=== PATIENT | female | born 1945 | race Hispanic/Latino ===

== ENCOUNTER 2018-03-22 10:55 | Observation (INO) | payer OTHER ==
[2018-03-19 15:40] VITALS: BP 130/63
[2018-03-19 16:01] LABS: BASOPHILS % (AUTO) 1.4 % (0.0-5.0); EOSINOPHILS % (AUTO) 2.2 % (0.0-8.0); HEMATOCRIT 32.3 % (36-48); LYMPHOCYTES % (AUTO) 23.2 % (21.0-51.0); MEAN CORPUSCULAR HGB CONC 31.5 g/dL (32.0-36.0); MEAN CORPUSCULAR VOLUME 79.5 fL (79-99); MONOCYTES % (AUTO) 7.2 % (3.0-13.0); PLATELET COUNT (AUTO) 276 K/uL (130-400); RED BLOOD CELL COUNT(AUTO) 4.06 MIL/uL (4.00-5.50); RED CELL DISTRIBUTION WIDTH 15.6 % (11.0-15.5); WHITE BLOOD COUNT (AUTO) 7.7 K/uL (4.8-10.8)
[2018-03-19 16:02] LABS: BILIRUBIN,URINE Negative (NEGATIVE); COLOR,URINE Yellow (YELLOW); GLUCOSE, URINE (UA) Negative (NEGATIVE); KETONES,URINE Negative (NEGATIVE); LEUKOCYTE ESTERASE ,URINE Trace (NEGATIVE); NITRATE,URINE Negative (NEGATIVE); OCCULT BLOOD,URINE Negative (NEGATIVE); PROTEIN,URINE Negative (NEGATIVE)
[2018-03-19 16:03] LABS: APPEARANCE,URINE CLEAR (CLEAR)
[2018-03-19 16:13] LABS: POTASSIUM 5.1 mmol/L (3.5-5.1)
[2018-03-19 16:17] LABS: INR 0.9 (0.85-1.15); PARTIAL THROMBOPLASTIN TIME 32.1 SEC (26.3-35.5); PROTHROMBIN TIME 9.5 SEC (9.6-11.6)
[2018-03-19 16:27] LABS: BACTERIA,URINE Rare /HPF (None Seen); RBC,URINE None Seen /HPF (0-1); WBC,URINE 0-1 /HPF (0-1)
[2018-03-19 16:28] LABS: SQUAMOUS EPITHELIAL CELL,UR None Seen /HPF (0-2)
[~2018-03-22] VITALS: Ht 154.9 cm; Wt 84.3 kg
[2018-03-22] VITALS (21 sets, daily range): BP systolic 92–133; BP diastolic 49–70
[~2018-03-22 10:55] MED LIST: AEC81 PO; ALPR1TAB7 PO; BACL10TA PO; CALCIUM PLUS D3 PO; HYDR-4060 PO; LEVO50TA11 PO; LISI2.5T2 PO; MELO-108 PO; METF-444 PO; METO25TA6 PO; MULT1TAB70 PO; OMEP40CA37 PO; PREG100C PO; SIMV40TA5 PO; VITA1CAP85 PO
[2018-03-22] MEDS ORDERED: CEFAZOLIN SODIUM 1 GM VIAL ONE (11:24)
[2018-03-22] MEDS ORDERED: SODIUM CHLORIDE 0.9% 1000ML 1,000 ML IV ONE (11:24)
[2018-03-22] MEDS ORDERED: CELECOXIB 200 MG CAP ONE (12:30)
[2018-03-22] MEDS ORDERED: ACETAMINOPHEN EXTRA STRENGTH 500 MG TABLET ONE (12:30)
[2018-03-22] MEDS ORDERED: OXYCODONE HCL 10 MG TAB.SR.12H PO ONE (12:30)
[2018-03-22] MEDS ORDERED: KETOROLAC TROMETHAMINE 15MG/ML ONE (12:30)
[2018-03-22] MEDS ORDERED: MIDAZOLAM HCL 1 MG/ML 2ML VIAL ONE (12:47)
[2018-03-22] MEDS ORDERED: LIDOCAINE PF 2% 5ML ABBOJECT ONE (12:47)
[2018-03-22] MEDS ORDERED: PROPOFOL 10 MG/ML 20ML VIAL IV ONE (12:47)
[2018-03-22] MEDS ORDERED: ROCURONIUM 10MG/1ML SYR 10 MG/ML ML ONE (12:48)
[2018-03-22] MEDS ORDERED: ONDANSETRON HCL 4 MG/2 ML VIAL ONE (12:48)
[2018-03-22] MEDS ORDERED: BUPIVACAINE/EPI/PF 0.5% 30ML VIAL IJ ONE (12:59)
[2018-03-22] MEDS: CEFAZOLIN SODIUM 1 GM VIAL ONE ×2 (13:00→15:00)
[2018-03-22] MEDS: TRANEXAMIC ACID 1000MG/10ML IV ONE ×2 (13:10→15:50)
[2018-03-22] MEDS ORDERED: ALBUMIN (HUMAN) 5% 250 ML IV ONE (13:27)
[2018-03-22] MEDS ORDERED: METOPROLOL TARTRATE 1 MG/ML 5ML VIAL IV ONE (13:59)
[2018-03-22] MEDS ORDERED: EPHEDRINE SULFATE 50 MG/ML AMPULE ONE (14:46)
[2018-03-22] MEDS ORDERED: GLYCOPYRROLATE 1 MG/5 ML SYRINGE ONE (14:58)
[2018-03-22] MEDS ORDERED: NEOSTIGMINE 5MG/5ML SYR IV ONE (14:58)
[2018-03-22] MEDS ORDERED: POTASSIUM CHLORIDE 10% ELIXIR 20 MEQ/15 ML UDCUP PO PRN (15:15)
[2018-03-22] MEDS ORDERED: LIDOCAINE HCL-MPF 1% 2ML VIAL IVP PRN (15:15)
[2018-03-22] MEDS ORDERED: DiphenhydrAMINE HCL 50 MG/ML VIAL IVP PRN (15:15)
[2018-03-22] MEDS ORDERED: POTASSIUM CHLORIDE 20 MEQ ERTAB PO PRN (15:15)
[2018-03-22] MEDS ORDERED: TRAMADOL HCL 50 MG TABLET PO PRN (15:15)
[2018-03-22] MEDS ORDERED: FERROUS FUMARATE 324 MG TABLET PO PRN (15:15)
[2018-03-22] MEDS: ACETAMINOPHEN EXTRA STRENGTH 500 MG TABLET PO SCH ×2 (15:15→22:49)
[2018-03-22] MEDS ORDERED: ONDANSETRON HCL 4 MG/2 ML VIAL IVP PRN (15:15)
[2018-03-22] MEDS ORDERED: POTASSIUM CHLORIDE 20MEQ/100ML 100 ML IV PRN (15:15)
[2018-03-22] MEDS ORDERED: FENTANYL CITRATE PF 50 MCG/1 ML 2ML VIAL ONE (15:17)
[2018-03-22] MEDS ORDERED: MORPHINE SULFATE 2 MG/ML 1ML SYG ONE (16:17)
[2018-03-22] MEDS: INSULIN HUMULIN R 100 UNIT/ML 3ML SQ SCH ×2 (16:30→21:00)
[2018-03-22] MEDS: SODIUM CHLORIDE 0.9% 1000ML 1,000 ML IV SCH (16:56)
[2018-03-22] MEDS: KETOROLAC TROMETHAMINE 15MG/ML IV PRN (18:52)
[2018-03-22] MEDS: METFORMIN HCL 500 MG TABLET PO SCH (19:08)
[2018-03-22] MEDS: PREGABALIN 100 MG CAPSULE PO SCH (20:11)
[2018-03-22] MEDS: BACLOFEN 10 MG TABLET PO SCH (20:11)
[2018-03-22] MEDS: METOPROLOL TARTRATE 25 MG TAB PO SCH (20:11)
[2018-03-22] MEDS: ALPRAZOLAM 1 MG TAB PO SCH (20:11)
[2018-03-22] MEDS: CEFAZOLIN SODIUM 1 GM VIAL IVP SCH (20:11)
[2018-03-22] MEDS: ASPIRIN 325 MG TABLET PO SCH (20:11)
[2018-03-22] MEDS: SIMVASTATIN 20 MG TABLET PO SCH (20:11)
[2018-03-22] MEDS: CELECOXIB 200 MG CAP PO SCH (20:11)
[2018-03-22] MEDS: CALCIUM PLUS D3 PO SCH (20:16)
[2018-03-22] MEDS: OXYCODONE HCL 5 MG TAB PO PRN (22:56)
[2018-03-23 00:08] VITALS: BP 92/52
[2018-03-23 04:12] VITALS: BP 116/68
[2018-03-23 04:35] LABS: HEMATOCRIT 24.4 % (36-48); MEAN CORPUSCULAR HEMOGLOBIN 26.2 pg (27.0-33.0); MEAN CORPUSCULAR HGB CONC 33.1 g/dL (32.0-36.0); MEAN CORPUSCULAR VOLUME 79.3 fL (79-99); PLATELET COUNT (AUTO) 190 K/uL (130-400); RED BLOOD CELL COUNT(AUTO) 3.07 MIL/uL (4.00-5.50); RED CELL DISTRIBUTION WIDTH 16.1 % (11.0-15.5); WHITE BLOOD COUNT (AUTO) 5.7 K/uL (4.8-10.8)
[2018-03-23] MEDS: SODIUM CHLORIDE 0.9% 1000ML 1,000 ML IV SCH ×3 (04:40→13:28)
[2018-03-23] MEDS: CEFAZOLIN SODIUM 1 GM VIAL IVP SCH (04:41)
[2018-03-23 04:42] LABS: POTASSIUM 4.4 mmol/L (3.5-5.1)
[2018-03-23] MEDS: LEVOTHYROXINE 50 MCG TABLET PO SCH (05:55)
[2018-03-23] MEDS: INSULIN HUMULIN R 100 UNIT/ML 3ML SQ SCH ×4 (05:56→20:43)
[2018-03-23 08:10] VITALS: BP 111/64
[2018-03-23] MEDS: OXYCODONE HCL 5 MG TAB PO PRN ×4 (08:41→22:47)
[2018-03-23 10:58] VITALS: BP 139/102
[2018-03-23] MEDS: KETOROLAC TROMETHAMINE 15MG/ML IV PRN (11:12)
[2018-03-23] MEDS: ACETAMINOPHEN EXTRA STRENGTH 500 MG TABLET PO SCH ×3 (11:13→22:45)
[2018-03-23] MEDS: ASPIRIN 325 MG TABLET PO SCH ×2 (11:13→20:26)
[2018-03-23] MEDS: FAMOTIDINE 20MG TAB 20 MG TAB PO SCH (11:13)
[2018-03-23] MEDS: BACLOFEN 10 MG TABLET PO SCH ×2 (11:14→20:26)
[2018-03-23] MEDS: VITAMIN B COMPLEX 1 CAPSULE PO SCH (11:14)
[2018-03-23] MEDS: CELECOXIB 200 MG CAP PO SCH ×2 (11:14→20:25)
[2018-03-23] MEDS: PREGABALIN 100 MG CAPSULE PO SCH ×2 (11:14→20:26)
[2018-03-23] MEDS: LISINOPRIL 2.5 MG TABLET PO SCH (11:14)
[2018-03-23] MEDS: METFORMIN HCL 500 MG TABLET PO SCH ×2 (11:14→17:40)
[2018-03-23] MEDS: POLYETHYLENE GLYCOL 3350 17 GM POWD.PACK PO SCH (11:15)
[2018-03-23] MEDS: CALCIUM CARBONATE 500 MG TABLET PO PRN ×2 (11:15→20:26)
[2018-03-23] MEDS: METOPROLOL TARTRATE 25 MG TAB PO SCH ×2 (11:15→20:26)
[2018-03-23] MEDS: PANTOPRAZOLE SODIUM 40 MG TABLET.DR PO SCH (11:15)
[2018-03-23 16:24] VITALS: BP 153/78
[2018-03-23 20:12] VITALS: BP 134/76
[2018-03-23] MEDS: ALPRAZOLAM 1 MG TAB PO SCH (20:26)
[2018-03-23] MEDS: SIMVASTATIN 20 MG TABLET PO SCH (20:26)
[2018-03-23] MEDS: CALCIUM PLUS D3 PO SCH (20:31)
[2018-03-24 00:12] VITALS: BP 133/58
[2018-03-24 04:00] VITALS: BP 131/72
[2018-03-24] MEDS: OXYCODONE HCL 5 MG TAB PO PRN ×3 (04:38→12:28)
[2018-03-24] MEDS: LEVOTHYROXINE 50 MCG TABLET PO SCH (05:48)
[2018-03-24] MEDS: INSULIN HUMULIN R 100 UNIT/ML 3ML SQ SCH ×2 (05:53→11:29)
[2018-03-24 07:30] VITALS: BP 121/63
[2018-03-24] MEDS: ACETAMINOPHEN EXTRA STRENGTH 500 MG TABLET PO SCH (08:56)
[2018-03-24] MEDS: POLYETHYLENE GLYCOL 3350 17 GM POWD.PACK PO SCH (08:56)
[2018-03-24] MEDS: VITAMIN B COMPLEX 1 CAPSULE PO SCH (08:57)
[2018-03-24] MEDS: METOPROLOL TARTRATE 25 MG TAB PO SCH ×2 (08:57→19:58)
[2018-03-24] MEDS: LISINOPRIL 2.5 MG TABLET PO SCH (08:57)
[2018-03-24] MEDS: PREGABALIN 100 MG CAPSULE PO SCH ×2 (08:57→19:58)
[2018-03-24] MEDS: FAMOTIDINE 20MG TAB 20 MG TAB PO SCH (08:57)
[2018-03-24] MEDS: BACLOFEN 10 MG TABLET PO SCH ×2 (08:57→19:58)
[2018-03-24] MEDS: ASPIRIN 325 MG TABLET PO SCH ×2 (08:57→19:58)
[2018-03-24] MEDS: PANTOPRAZOLE SODIUM 40 MG TABLET.DR PO SCH (08:57)
[2018-03-24] MEDS: CELECOXIB 200 MG CAP PO SCH ×2 (08:57→19:59)
[2018-03-24] MEDS: METFORMIN HCL 500 MG TABLET PO SCH (08:58)
[2018-03-24] MEDS ORDERED: ASPI-1012 PO (16:54)
[2018-03-24] MEDS ORDERED: HYDR-309 PO (16:54)
[2018-03-24] MEDS: ALPRAZOLAM 1 MG TAB PO SCH (19:59)
[2018-03-24] MEDS: SIMVASTATIN 20 MG TABLET PO SCH (19:59)
[2018-03-25] MEDS ORDERED: BISACODYL 10 MG SUPP.RECT RC PRN (15:15)
== END 2018-03-24 20:39 ==
LOC: DAH 10:55 → DAHIP 10:56 → 4AH 17:21
PROVIDERS: ADMIT Orthopaedic Surgery; ATTEND Orthopaedic Surgery
DX: M17.11 Unilateral primary osteoarthritis, right knee (principal); I25.10 Atherosclerotic heart disease of native coronary artery without angina pectoris; G89.29 Other chronic pain; E89.0 Postprocedural hypothyroidism; I44.0 Atrioventricular block, first degree; Z96.651 Presence of right artificial knee joint; Z95.5 Presence of coronary angioplasty implant and graft; Z82.49 Family history of ischemic heart disease and other diseases of the circulatory system; Z83.3 Family history of diabetes mellitus; Z79.899 Other long term (current) drug therapy; Z79.01 Long term (current) use of anticoagulants
CPT/HCPCS: 27447; 36415 ×2; 80048 ×2; 81001; 82948 ×9; 85025; 85027; 85610; 85730; 88305; 88311; 93005; 96374; 96375; 96376; 97116 ×4; 97161; 97530 ×3; A4215; A4218 ×2; A4649 ×5; A4930 ×3; A9272; C1713; C1763; C1776; G0378 ×58; G8978; G8979; G8980; G8981; G8982; G8983; J0690 ×4; J1885 ×3; J2001; J2405; J2704; J2710; J3010; J3490 ×5; J7030 ×2; P9045; J2250

== ENCOUNTER → 2018-09-21 | Outpatient (CLI) | payer OTHER ==
[~2018-09-21] VITALS: Ht 157.5 cm; Wt 76.2 kg
[~2018-09-21] MED LIST changes: -AEC81 PO; +ASPI-1012 PO; +ASPI-555 PO; +CEFAZOLIN SODIUM 1 GM VIAL IVP ONE; -HYDR-4060 PO; +HYDR-4457 PO; +ISOS30TA6 PO
[2018-09-21 16:29] LABS: BASOPHILS % (AUTO) 1.2 % (0.0-5.0); EOSINOPHILS % (AUTO) 3.9 % (0.0-8.0); HEMATOCRIT 27.4 % (36-48); LYMPHOCYTES % (AUTO) 24.4 % (21.0-51.0); MEAN CORPUSCULAR HEMOGLOBIN 24.6 pg (27.0-33.0); MEAN CORPUSCULAR HGB CONC 31.6 g/dL (32.0-36.0); MEAN CORPUSCULAR VOLUME 77.8 fL (79-99); MONOCYTES % (AUTO) 9.4 % (3.0-13.0); NEUTROPHILS % (AUTO) 61.1 % (40.0-77.0); PLATELET COUNT (AUTO) 314 K/uL (130-400); RED BLOOD CELL COUNT(AUTO) 3.53 MIL/uL (4.00-5.50); RED CELL DISTRIBUTION WIDTH 17.3 % (11.0-15.5); WHITE BLOOD COUNT (AUTO) 5.5 K/uL (4.8-10.8)
[2018-09-21 16:32] LABS: APPEARANCE,URINE Clear (CLEAR); BILIRUBIN,URINE Negative (NEGATIVE); COLOR,URINE Dark Yellow (YELLOW); GLUCOSE, URINE (UA) Negative (NEGATIVE); KETONES,URINE Trace mg/dL (NEGATIVE); LEUKOCYTE ESTERASE ,URINE Negative (NEGATIVE); NITRATE,URINE Negative (NEGATIVE); OCCULT BLOOD,URINE Negative (NEGATIVE); PROTEIN,URINE Negative (NEGATIVE); UROBILINOGEN,URINE 0.2 mg/dL (0.2-1.0)
[2018-09-21 16:47] LABS: INR 0.94 (0.85-1.15); PARTIAL THROMBOPLASTIN TIME 30.6 SEC (26.3-35.5); PROTHROMBIN TIME 9.9 SEC (9.6-11.6)
[2018-09-21 17:59] VITALS: BP 94/54
--- NOTE | 2018-09-21 18:20 | NUR ---
H&H 8.7.[address] Hayde Correa, orders to cancel surgery, call patient and inform her to follow up with her primary Doctor to elevate her H&H and then call his office to reschedule
--- NOTE | 2018-09-21 18:25 | NUR ---
NURSING: CALLED SPOKE TO PT REGARDING CANCELATION OF PROCEDURE FOR TOMORROW, EXPLAINED TO PT CANCELATION IS D/T LOW H&H LEVELS FROM THIS MORNING LAS DRAW, INSTRUCTED PT TO SEE PCP, PT NEEDS TO BRING UP H&H LEVELS AND RESCHEDULE PROCEDURE WITH DR. LEAVITT OFFICE.
== END ==
LOC: DAH 10:00 → EDSTATUS 15:00
PROVIDERS: ATTEND Orthopaedic Surgery
DX: Z01.818 Encounter for other preprocedural examination (principal); M17.12 Unilateral primary osteoarthritis, left knee
CPT/HCPCS: 36415; 81003; 85025; 85610; 85730

== ENCOUNTER 2019-02-02 07:00 | Inpatient (IN) | payer OTHER ==
[2019-02-01 15:38] VITALS: BP 114/71
[2019-02-01 16:02] LABS: APPEARANCE,URINE Clear (CLEAR); BILIRUBIN,URINE Moderate (NEGATIVE); COLOR,URINE Dark Yellow (YELLOW); GLUCOSE, URINE (UA) Negative (NEGATIVE); KETONES,URINE 15 mg/dL (NEGATIVE); LEUKOCYTE ESTERASE ,URINE Trace (NEGATIVE); NITRATE,URINE Negative (NEGATIVE); OCCULT BLOOD,URINE Negative (NEGATIVE); PROTEIN,URINE Negative (NEGATIVE)
[2019-02-01 16:46] LABS: BACTERIA,URINE Moderate /HPF (None Seen); RBC,URINE 0-1 /HPF (0-1); WBC,URINE 0-1 /HPF (0-1)
--- NOTE | 2019-02-01 17:45 | NUR ---
LABS ABNORMAL UA REPORTED TO DR. LEAVITT , FURTHER ORDERS GIVEN
[~2019-02-02] VITALS: Ht 154.9 cm; Wt 75.8 kg
[2019-02-02] VITALS (22 sets, daily range): BP systolic 95–134; BP diastolic 53–65
[2019-02-02] MEDS: VANCOMYCIN 1.5 GM in SODIUM CHLORIDE 0.9% 250 ML IV SCH (05:00)
[~2019-02-02 07:00] MED LIST changes: -ASPI-1012 PO; +CALC-1106 PO; -CALCIUM PLUS D3 PO; -CEFAZOLIN SODIUM 1 GM VIAL IVP ONE; +CEFAZOLIN SODIUM 1 GM VIAL IVP PRN; +COMPOUND IV REFRIGERATED 1 EACH IVSOLN MISC PRN; +HYDR-4060 PO; -HYDR-4457 PO; -ISOS30TA6 PO
--- NOTE | 2019-02-02 07:20 | NUR ---
POTENTIAL FOR INFECTION: NO SHAVING NEEDED TO LEFT KNEE / LEG ASSESSED PER NITZA MOLINA MA. WIPED LEFT KNEE / LEG WITH TIMMY: 2% CHLORHEXIDINE GLUCONATE CLOTH PATIENTS PRE-OP SKIN PREP PER NITZA MOLINA MA.
[2019-02-02] MEDS ORDERED: SODIUM CHLORIDE 0.9% 1000ML 1,000 ML IV ONE (08:03)
[2019-02-02] MEDS: GENTAMICIN SULFATE 240 MG in SODIUM CHLORIDE 0.9% 100 ML IV SCH ×3 (08:15→11:48)
[2019-02-02] MEDS ORDERED: ROPIVACAINE 0.5% 5MG/ML 30ML IJ ONE (08:23)
[2019-02-02] MEDS ORDERED: DEXTROSE 50%-WATER 50 ML DISP.SYRIN IV ONE (08:25)
[2019-02-02] MEDS ORDERED: PROPOFOL 10 MG/ML 20ML VIAL IV ONE (08:34)
[2019-02-02] MEDS ORDERED: LIDOCAINE PF 2% 5ML ABBOJECT ONE (08:34)
[2019-02-02] MEDS ORDERED: FENTANYL CITRATE PF 50 MCG/1 ML 2ML VIAL ONE ×2 (08:34→11:30)
[2019-02-02] MEDS ORDERED: ONDANSETRON HCL 4 MG/2 ML VIAL ONE (08:34)
[2019-02-02] MEDS ORDERED: DEXAMETHASONE SOD PHOSPHATE 10MG/ML 1ML VIAL ONE (08:34)
[2019-02-02] MEDS ORDERED: MIDAZOLAM HCL 1 MG/ML 2ML VIAL ONE (08:34)
[2019-02-02] MEDS ORDERED: ROCURONIUM 10MG/1ML SYR 10 MG/ML ML ONE (08:35)
[2019-02-02] MEDS ORDERED: EPHEDRINE SULFATE 50 MG/ML AMPULE ONE (08:46)
[2019-02-02] MEDS ORDERED: CEFAZOLIN SODIUM 1 GM VIAL ONE (08:59)
[2019-02-02] MEDS: TRANEXAMIC ACID 1000MG/10ML IV ONE ×2 (09:00→11:15)
[2019-02-02] MEDS ORDERED: POTASSIUM CHLORIDE 10% ELIXIR 20 MEQ/15 ML UDCUP PO PRN (10:45)
[2019-02-02] MEDS ORDERED: POTASSIUM CHLORIDE 20 MEQ ERTAB PO PRN (10:45)
[2019-02-02] MEDS ORDERED: CALCIUM CARBONATE 500 MG TABLET PO PRN (10:45)
[2019-02-02] MEDS ORDERED: TRAMADOL HCL 50 MG TABLET PO PRN (10:45)
[2019-02-02] MEDS ORDERED: FERROUS FUMARATE 324 MG TABLET PO PRN (10:45)
[2019-02-02] MEDS: ACETAMINOPHEN EXTRA STRENGTH 500 MG TABLET PO SCH ×2 (10:45→18:14)
[2019-02-02] MEDS ORDERED: KETOROLAC TROMETHAMINE 15MG/ML IV PRN (10:45)
[2019-02-02] MEDS ORDERED: POTASSIUM CHLORIDE 20MEQ/100ML 100 ML IV PRN (10:45)
[2019-02-02] MEDS ORDERED: ONDANSETRON HCL 4 MG/2 ML VIAL IVP PRN (10:45)
[2019-02-02] MEDS ORDERED: DiphenhydrAMINE HCL 50 MG/ML VIAL IVP PRN (10:45)
[2019-02-02] MEDS ORDERED: LIDOCAINE HCL-MPF 1% 2ML VIAL IVP PRN (10:45)
[2019-02-02] MEDS: SODIUM CHLORIDE 0.9% 1000ML 1,000 ML IV SCH ×3 (11:00→23:15)
--- NOTE | 2019-02-02 11:04 | NUR ---
TRANEXAMIC ACID 1GM IVPB GIVEN IN PACU. Addendum: 02/02/19 at 1105 by GOKUL VAZQUEZ RN RN Amended: Links added.
[2019-02-02] MEDS: INSULIN HUMULIN R 100 UNIT/ML 3ML SQ SCH ×3 (11:30→20:42)
--- NOTE | 2019-02-02 12:00 | NUR ---
POST SURGERY PATIENT RECEIVED FROM PACU VIA HOSPITAL BED IN STABLE CONDITION. FAMILY IS PRESENT AT BEDSIDE. ALL HAVE BEEN ORIENTED TO ROOM AND USE OF CALL LIGHT. DRESSING TO THE RIGHT KNEE IS DRY AND INTACT. BED IS IN LOWEST POSITION AND LOCKED WITH PERSONAL BELONGINGS WITHIN REACH. POST-OP V/S HAVE BEEN INITIATED. WILL CONTINUE TO MONITOR.
[2019-02-02] MEDS ORDERED: BACLOFEN 10 MG TABLET PO PRN (12:45)
[2019-02-02] MEDS: CEFAZOLIN SODIUM 1 GM VIAL IVP SCH ×2 (15:42→23:18)
[2019-02-02] MEDS: OXYCODONE HCL 5 MG TAB PO PRN (15:48)
[2019-02-02] MEDS: CELECOXIB 200 MG CAP PO SCH (16:26)
[2019-02-02] MEDS: METFORMIN HCL 500 MG TABLET PO SCH (16:27)
--- NOTE | 2019-02-02 16:30 | NUR ---
INIITIAL AND REFERRAL MET W PT AND FAMILY AT B/SIDE S/P TKA, AAOX3, LIVES ALONE, FAMILY IN AREA TO HELP, HOME SAFE AND ACCESSIBLE, NO STAIRS,DRIVES SELF , PROVIDR 25 HRS WK, ORDER FOR SNF REFERRAL, SURINDER SIGNED, PKT SENT, WENDY HER TO SEE PT, PENDING AUTH AND PASSRE Addendum: 02/03/19 at 1749 by ZENAIDA GUARDADO RN CM Amended: Links added.
--- NOTE | 2019-02-02 16:30 | NUR ---
INITIAL AND REFERRAL Addendum: 02/03/19 at 1749 by ZENAIDA GUARDADO RN CM Amended: Links added.
[2019-02-02] MEDS: SIMVASTATIN 20 MG TABLET PO SCH (20:34)
[2019-02-02] MEDS: METOPROLOL TARTRATE 25 MG TAB PO SCH (20:34)
[2019-02-02] MEDS: ASPIRIN 325 MG TABLET PO SCH (20:34)
[2019-02-02] MEDS: PREGABALIN 100 MG CAPSULE PO SCH (20:34)
[2019-02-02] MEDS: ALPRAZOLAM 1 MG TAB PO SCH (20:35)
[2019-02-03] VITALS (7 sets, daily range): BP systolic 79–131; BP diastolic 45–85
[2019-02-03] MEDS: ACETAMINOPHEN EXTRA STRENGTH 500 MG TABLET PO SCH ×3 (03:00→18:26)
[2019-02-03 04:43] LABS: HEMATOCRIT 28.5 % (36-48); MEAN CORPUSCULAR HGB CONC 33.7 g/dL (32.0-36.0); MEAN CORPUSCULAR VOLUME 88.9 fL (79-99); NUCLEATED RED BLOOD CELLS 0.1 % (0.0-0.19); PLATELET COUNT (AUTO) 132 K/uL (130-400); RED CELL DISTRIBUTION WIDTH 15.1 % (11.0-15.5); WHITE BLOOD COUNT (AUTO) 3.7 K/uL (4.8-10.8)
[2019-02-03 04:50] LABS: CREATININE 1.1 mg/dL (0.5-1.5)
[2019-02-03] MEDS: VANCOMYCIN 1.5 GM in SODIUM CHLORIDE 0.9% 250 ML IV SCH ×2 (05:00→19:33)
[2019-02-03] MEDS: LEVOTHYROXINE 50 MCG TABLET PO SCH (05:38)
--- NOTE | 2019-02-03 06:50 | NUR ---
PAIN MEDICATION PATIENT AWAKE AND ALERT. MEDICATED PER MARS FOR COMPLAINTS OF PAIN TO RIGHT HIP. REPOSITIONED FOR COMFORT. HOB ELEVATED. RESP EVEN AND UNLABORED. NO SOB NOTED. CALL LIGHT WITHIN REACH. WILL CONTINUE TO BE OBSERVED. Addendum: 02/03/19 at 0715 by GERA MOLINA RN RN Amended: Links added.
[2019-02-03] MEDS: OXYCODONE HCL 5 MG TAB PO PRN ×3 (06:51→19:59)
[2019-02-03] MEDS: INSULIN HUMULIN R 100 UNIT/ML 3ML SQ SCH ×4 (07:13→20:00)
[2019-02-03] MEDS: ASPIRIN 325 MG TABLET PO SCH ×2 (07:55→19:59)
[2019-02-03] MEDS: PANTOPRAZOLE SODIUM 40 MG TABLET.DR PO SCH (07:56)
[2019-02-03] MEDS: CELECOXIB 200 MG CAP PO SCH ×2 (07:56→16:15)
[2019-02-03] MEDS: METFORMIN HCL 500 MG TABLET PO SCH ×2 (07:56→16:15)
[2019-02-03] MEDS: CALCIUM 600 + VITAMIN D 400 TABLET PO SCH (07:56)
[2019-02-03] MEDS: POLYETHYLENE GLYCOL 3350 17 GM POWD.PACK PO SCH (07:56)
[2019-02-03] MEDS: PREGABALIN 100 MG CAPSULE PO SCH ×2 (07:56→19:59)
[2019-02-03] MEDS: LISINOPRIL 2.5 MG TABLET PO SCH (07:56)
[2019-02-03] MEDS: METOPROLOL TARTRATE 25 MG TAB PO SCH ×2 (07:56→19:33)
[2019-02-03] MEDS ORDERED: COMPOUND IV REFRIGERATED 1 EACH IVSOLN MISC PRN (11:30)
[2019-02-03] MEDS: SODIUM CHLORIDE 0.9% 1000ML 1,000 ML IV SCH (16:16)
--- NOTE | 2019-02-03 17:50 | NUR ---
STAYING OVERNIGHT, HENRI LEAVITT, WILL FOLLOW Addendum: 02/03/19 at 1751 by ZENAIDA GUARDADO RN CM Amended: Links added.
[2019-02-03] MEDS: SIMVASTATIN 20 MG TABLET PO SCH (19:59)
[2019-02-03] MEDS: ALPRAZOLAM 1 MG TAB PO SCH (19:59)
--- NOTE | 2019-02-03 20:00 | NUR ---
ASSESSMENT NOTE PATIENT AWAKE, ALERT, OX3, NO SOB, NO C/O PAIN AT THIS TIME, ENCOURAGE DEEP BREATHING AND IS PREVIOUSLY DONE, B/P 98/55, MANUALLLY , ASYMPTOMATIC, CONTINUE IVF ORDERED, TEACH PLAN OF CARE AND EXPECTED OUTCOME, PATIENT VERBALIZE UNDERSTANDING VIA TEACH
[2019-02-04] MEDS: OXYCODONE HCL 5 MG TAB PO PRN ×3 (01:06→14:37)
[2019-02-04] MEDS: ACETAMINOPHEN EXTRA STRENGTH 500 MG TABLET PO SCH ×2 (01:08→11:16)
[2019-02-04 04:00] VITALS: BP 118/65
[2019-02-04 04:22] LABS: HEMATOCRIT 27.7 % (36-48); MEAN CORPUSCULAR HGB CONC 34.1 g/dL (32.0-36.0); MEAN CORPUSCULAR VOLUME 87.9 fL (79-99); PLATELET COUNT (AUTO) 131 K/uL (130-400); RED BLOOD CELL COUNT(AUTO) 3.15 MIL/uL (4.00-5.50); RED CELL DISTRIBUTION WIDTH 15.1 % (11.0-15.5); WHITE BLOOD COUNT (AUTO) 4.2 K/uL (4.8-10.8)
[2019-02-04] MEDS: INSULIN HUMULIN R 100 UNIT/ML 3ML SQ SCH ×3 (06:26→16:28)
[2019-02-04] MEDS: LEVOTHYROXINE 50 MCG TABLET PO SCH (06:26)
[2019-02-04 08:00] VITALS: BP 130/63
[2019-02-04] MEDS: METOPROLOL TARTRATE 25 MG TAB PO SCH (09:00)
[2019-02-04] MEDS: LISINOPRIL 2.5 MG TABLET PO SCH (09:00)
--- NOTE | 2019-02-04 09:00 | NUR ---
ACCEPTED AT [facility] CALL MADE TO ANTONIETTA MURRAY RN AWARE Addendum: 02/04/19 at 1054 by ZENAIDA GUARDADO RN CM Amended: Links added.
[2019-02-04] MEDS: PREGABALIN 100 MG CAPSULE PO SCH (09:29)
[2019-02-04] MEDS: CELECOXIB 200 MG CAP PO SCH ×2 (09:29→17:12)
[2019-02-04] MEDS: POLYETHYLENE GLYCOL 3350 17 GM POWD.PACK PO SCH (09:29)
[2019-02-04] MEDS: ASPIRIN 325 MG TABLET PO SCH (09:30)
[2019-02-04] MEDS: CALCIUM 600 + VITAMIN D 400 TABLET PO SCH (09:30)
[2019-02-04] MEDS: PANTOPRAZOLE SODIUM 40 MG TABLET.DR PO SCH (09:30)
[2019-02-04] MEDS: METFORMIN HCL 500 MG TABLET PO SCH ×2 (09:30→17:12)
[2019-02-04 12:00] VITALS: BP 120/67
[2019-02-04 16:00] VITALS: BP 109/60
[2019-02-04] MEDS ORDERED: ASPI-1012 PO (16:56)
[2019-02-04] MEDS ORDERED: HYDR-4457 PO (16:56)
--- NOTE | 2019-02-04 18:35 | NUR ---
DISCHARGE DISCHARGE TEACHING DONE WITH PATIENT AND FAMILY USING TEACHBACK METHOD, VERBALIZED UNDERSTANDING. NO NOTED SOB OR DISTRESS. NEW MEDICATION ADMINISTRATION TEACHING DONE WITH PATIENT, VERBALIZED UNDERSTANDING. PT AWARE OF NEED TO ATTEND DR. LEAVITT APPOINTMENT. DRESSING TO KNEE DRY AND INTACT. DRESSING CHANGED PER DR. LEAVITT, INCISION IS DRY AND INTACT. DRESSING TEACHING DONE WITH PATIENT, VERBALIZED UNDERSTANDING. IV REMOVED, CATH TIP INTACT. PENDING TO BE TRANSFERRED OUT VIA PRIVATE VEHICLE. REPORT CALLED TO SAFIA DUFF
[2019-02-05] MEDS ORDERED: BISACODYL 10 MG SUPP.RECT RC PRN (10:45)
== END 2019-02-04 18:38 | DRG 470 ==
LOC: DAH 07:00 → 4AH 07:01 → OBSVTOIN 07:01 → DAH 07:01
PROVIDERS: ADMIT Orthopaedic Surgery; ATTEND Orthopaedic Surgery
PROC: 0SRD0J9 Replacement of Left Knee Joint with Synthetic Substitute, Cemented, Open Approach (ICD-10-PCS; principal; 2019-02-02 08:30)
DX: M17.12 Unilateral primary osteoarthritis, left knee (principal); I25.10 Atherosclerotic heart disease of native coronary artery without angina pectoris; E03.9 Hypothyroidism, unspecified; G89.29 Other chronic pain; I45.10 Unspecified right bundle-branch block; I11.9 Hypertensive heart disease without heart failure; E11.42 Type 2 diabetes mellitus with diabetic polyneuropathy; E11.65 Type 2 diabetes mellitus with hyperglycemia; M20.22 Hallux rigidus, left foot; M20.42 Other hammer toe(s) (acquired), left foot; I44.0 Atrioventricular block, first degree; Z90.49 Acquired absence of other specified parts of digestive tract; Z88.8 Allergy status to other drugs, medicaments and biological substances; Z95.5 Presence of coronary angioplasty implant and graft; Z79.899 Other long term (current) drug therapy; Z83.3 Family history of diabetes mellitus; Z82.49 Family history of ischemic heart disease and other diseases of the circulatory system
CPT/HCPCS: 36415; 80048; 81001; 82948; 85027; 87088; 87641; 88305; 88311; 96365; 97039; G0378; J0690; J1100; J1580; J2001; J2250; J2405; J2704; J2795; J3010; J3370; J3490; J7030; J7070; J7120

== ENCOUNTER → 2020-01-30 | Outpatient (CLI) | payer OTHER ==
[~2020-01-30] VITALS: Ht 154.9 cm; Wt 82.6 kg
[~2020-01-30] MED LIST changes: +ASPI-1012 PO; -ASPI-555 PO; -CEFAZOLIN SODIUM 1 GM VIAL IVP PRN; -COMPOUND IV REFRIGERATED 1 EACH IVSOLN MISC PRN; -HYDR-4060 PO; +HYDR-4457 PO; -MELO-108 PO; +MULT-660 PO; -MULT1TAB70 PO; +OMEP40CA13 PO; -OMEP40CA37 PO; +REGADENOSON 0.4 MG/5 ML PF SYG IVP SCH; +SIMV-46 PO; -SIMV40TA5 PO
== END | disposition home or self-care (01) ==
LOC: SHCH 08:27
PROVIDERS: ATTEND Internal Medicine Cardiovascular Disease
DX: R07.9 Chest pain, unspecified (principal); I25.10 Atherosclerotic heart disease of native coronary artery without angina pectoris
CPT/HCPCS: 78452; 93017; 96374; A9500 ×2; J2785

== ENCOUNTER → 2023-10-17 | Outpatient (CLI) | payer OTHER ==
[~2023-10-17] MED LIST changes: +LISI2.5T13 PO; -LISI2.5T2 PO; -OMEP40CA13 PO; +OMEP40CA21 PO; -REGADENOSON 0.4 MG/5 ML PF SYG IVP SCH
== END | disposition home or self-care (01) ==
LOC: SHCH 09:53
PROVIDERS: ATTEND Internal Medicine Cardiovascular Disease
DX: I51.89 Other ill-defined heart diseases (principal); I25.10 Atherosclerotic heart disease of native coronary artery without angina pectoris; R06.00 Dyspnea, unspecified
CPT/HCPCS: 93306

== ENCOUNTER → 2023-10-20 | Outpatient (CLI) | payer OTHER ==
[2023-10-20] MEDS: REGADENOSON 0.4 MG/5 ML PF SYG IVP ONE (11:53)
== END | disposition home or self-care (01) ==
LOC: SHCH 08:49
PROVIDERS: ATTEND Internal Medicine Cardiovascular Disease
DX: I25.119 Atherosclerotic heart disease of native coronary artery with unspecified angina pectoris (principal); I45.10 Unspecified right bundle-branch block; R06.00 Dyspnea, unspecified; R51.9 Headache, unspecified
CPT/HCPCS: 78452; 93017; J2785; A9500 ×2; 96374

== ENCOUNTER 2024-03-23 13:22 | Emergency (ER) | payer OTHER ==
[~2024-03-23] VITALS: Ht 154.9 cm; Wt 74.8 kg
[2024-03-23 13:23] VITALS: BP 139/88; PULSE 72; RESP 18; TEMP 99.2
[2024-03-23] MEDS: dexaMETHasone SOD PHOSPHATE 4 MG/ML 1ML VIAL IM ONE (14:48)
[2024-03-23] MEDS: HYDROcodone/APAP 5/325 1 TAB TABLET PO ONE (14:48)
== END 2024-03-23 15:15 | disposition home or self-care (01) ==
LOC: EDH 13:22
DX: M25.511 Pain in right shoulder (principal); M25.531 Pain in right wrist; M19.90 Unspecified osteoarthritis, unspecified site; E11.9 Type 2 diabetes mellitus without complications; F32.A Depression, unspecified; F41.9 Anxiety disorder, unspecified; I10 Essential (primary) hypertension; Z79.84 Long term (current) use of oral hypoglycemic drugs; Z79.899 Other long term (current) drug therapy; Z88.8 Allergy status to other drugs, medicaments and biological substances; Z90.49 Acquired absence of other specified parts of digestive tract; Z95.5 Presence of coronary angioplasty implant and graft; Z96.653 Presence of artificial knee joint, bilateral; Z98.890 Other specified postprocedural states; X58.XXXA Exposure to other specified factors, initial encounter; Y93.89 Activity, other specified; Y92.89 Other specified places as the place of occurrence of the external cause; Y99.8 Other external cause status
CPT/HCPCS: 99284; 73030; 73110; 96372; J1100

== ENCOUNTER → 2024-03-25 | Outpatient (CLI) | payer OTHER | END | disposition home or self-care (01) | LOC: SHCH 07:58 | PROVIDERS: ATTEND Internal Medicine Cardiovascular Disease | DX: I73.9 Peripheral vascular disease, unspecified (principal) | CPT/HCPCS: 93925 ==

== ENCOUNTER → 2024-03-30 | Outpatient (CLI) | payer OTHER ==
[~2024-03-30] MED LIST changes: +ALBUTEROL 0.083% 2.5 MG/3 ML INH IH ONE
== END | disposition home or self-care (01) ==
LOC: RESP 13:57
PROVIDERS: ATTEND Physician Assistant
DX: R06.00 Dyspnea, unspecified (principal)
CPT/HCPCS: 94060

== ENCOUNTER 2024-08-22 10:03 | Inpatient (IN) | payer OTHER ==
[~2024-08-22] VITALS: Ht 154.9 cm; Wt 73.0 kg
[~2024-08-22 10:03] MED LIST changes: -ALBUTEROL 0.083% 2.5 MG/3 ML INH IH ONE
--- NOTE | 2024-08-22 10:39 | ERN ---
General Chief Complaint: Diarrhea Stated Complaint: DIARRHEA X 2 WEEKS Time Seen by MD: 10:04 Source: patient History of Present Illness Initial Comments PATIENT IS A 79-YEAR-OLD FEMALE COMING IN TO BE EVALUATED FOR DIARRHEA. SHE STATES THAT SHE HAS BEEN HAVING ON AND OFF DIARRHEA FOR TWO WEEKS. PATIENT IS PENDING A VISIT FROM HIS PCP. TAKING IMODIUM BUT HAS NOT HAS BEEN HELPING. Allergies: Coded Allergies: gabapentin (Unverified Allergy, Unknown, 09/21/18) Home Meds Active Scripts Hydrocodone/Acetaminophen ([place] 5-325 Tablet) 1 Each Tablet, 1-2 EACH PO Q6HPRN PRN for PAIN, #60 TAB Prov:SAMMIE LEAVITT MD 02/04/19 Aspirin (ASPIRIN) 325 Mg Tablet, 325 MG PO BIDMEALS, #40 TAB Prov:SAMMIE LEAVITT MD 02/04/19 Reported Medications Calcium Carbonate/Vitamin D3 (Calcium 600 + Vit D3 800 Tab) 1 Each Tablet, 1 EACH PO AM, TAB 02/01/19 Vitamin B Complex (Vitamin B Complex) 1 Each Capsule, 1 EACH PO DAILY, CAP 03/19/18 Multivitamin (Multivitamins) 1 Each Tablet, 1 EACH PO DAILY, TAB 03/19/18 Lisinopril (Lisinopril) 2.5 Mg Tablet, 2.5 MG PO DAILY, TAB 03/19/18 Alprazolam (Alprazolam) 1 Mg Tablet, 1 MG PO HS, TAB 03/19/18 Levothyroxine Sodium (Levothyroxine Sodium) 50 Mcg Tablet, 50 MCG PO DAILY, TAB 03/19/18 Baclofen (Baclofen) 10 Mg Tablet, 10 MG PO BID PRN for PAIN, TAB 03/19/18 Metformin HCl (Metformin HCl) 500 Mg Tablet, 500 MG PO BID, TAB 03/19/18 Simvastatin (Simvastatin) 40 Mg Tablet, 40 MG PO HS, TAB 03/19/18 Pregabalin (Lyrica) 100 Mg Capsule, 100 MG PO BID, CAP 03/19/18 Omeprazole (Omeprazole) 40 Mg Capsule.dr, 40 MG PO DAILY, CAP 03/19/18 Metoprolol Tartrate (Metoprolol Tartrate) 25 Mg Tablet, 25 MG PO BID, TAB 03/19/18 Past Medical History Past Medical History: Anxiety, Arthritis, Depression, Diabetes-Type II, Hypertension Medical History Other: OSTEOPOROSIS Past Surgical History: Cholecystectomy, Other, Surgical History Other: CARDIAC STENTS, BILATERAL KNEE REPLACEMENT ROS Dictation CONSTITUTIONAL: NO CHILLS, NO FEVER, NO WEAKNESS, NO DIAPHORESIS, NO MALAISE. HEAD/FACE: NO SIGNS OF TRAUMA. EENT: NO EYE PAIN, NO BLURRED VISION, NO TEARING, NO DOUBLE VISION, NO EAR PAIN, NO EAR DISCHARGE, NO NOSE PAIN, NO NASAL CONGESTION, NO THROAT PAIN, NO THROAT SWELLING, NO MOUTH PAIN. RESPIRATORY: NO COUGH, NO ORTHOPNEA, NO SOB, NO STRIDOR, NO WHEEZING. CARDIOVASCULAR: NO CHEST PAIN, NO EDEMA, NO PALPITATIONS, NO SYNCOPE. GASTROINTESTINAL/ABDOMINAL: NO ABDOMINAL PAIN, NO CONSTIPATION, NO DIARRHEA, NO NAUSEA, NO VOMITING. GENITOURINARY: NO ABNORMAL DISCHARGE, NO DYSURIA, NO FREQUENT URINATION, NO HEMATURIA. NO COMPLAINTS OF PAIN IN THE GENITALS. MUSCULOSKELETAL: NO BACK PAIN, NO GOUT, NO JOINT PAIN, NO JOINT SWELLING, NO MUSCLE PAIN, NO MUSCLE STIFFNESS, NO NECK PAIN. INTEGUMENTARY: NO CHANGE IN COLOR, NO CHANGE IN HAIR/NAILS, NO DRYNESS, NO LESION, NO LUMPS, NO RASH. NEUROLOGICAL/PSYCH: NO ANXIETY, NOT DEPRESSED, NO EMOTIONAL PROBLEM, NO HEADACHE, NO NUMBNESS, NO PRE-EXISTING DEFICIT, NO HISTORY OF SEIZURES, NO TREMORS, NO WEAKNESS. HEMATOLOGIC/LYMPHATIC: NOT ANEMIC, NO HISTORY OF BLOOD CLOTS, NO APPARENT BLEEDING, NO BRUISING, GLANDS NOT SWOLLEN. ALL SYSTEMS NEGATIVE, EXCEPT NOTED. Physical Exam Physical Exam Dictation VITAL SIGNS: REVIEWED. GENERAL APPEARANCE: ALERT, ORIENTED X3, NO ACUTE DISTRESS, OBESE. HEAD AND FACE: NON-TRAUMATIC. EYES: PERRL, PINK CONJUNCTIVAS, EYELID NO TRAUMA, ANTERIOR CHAMBER CLEAR. EARS: PINNAS INTACT AND NO SIGNS OF TRAUMA OR ERYTHEMA. EAR CANALS CLEAR AND NO DISCHARGE. TMS NO ERYTHEMA. NOSE: NO DISCHARGE, NO BLEEDING. OROPHARYNX: MOUTH NORMAL, TEETH NO CARIES, TONGUE PINK. PHARYNX CLEAR, NO ERYTHEMA. TONSILS NO EXUDATES, NO ABSCESSES NOTED. MUCOUS MEMBRANE MOIST. NECK: SUPPLE, NON-TENDER, NO THYROMEGALY, NO MASSES, NO JVD, NO BRUITS. BREAST: DEFERRED. CHEST: NO TENDERNESS, NO CREPITUS, NO PARADOXICAL MOVEMENT, NO RETRACTIONS. LUNGS: CLEAR, WELL-VENTILATED, SYMMETRIC, NO RALES, NO WHEEZING, NO RHONCHI, NO STRIDOR, GOOD BREATH SOUNDS BILATERALLY. HEART: REGULAR RATE, REGULAR RHYTHM, NO MURMUR, NO GALLOPS. VASCULAR: NO PERIPHERAL EDEMA. ABDOMEN: SOFT, POSITIVE BOWEL SOUNDS, NONDISTENDED, NO GUARDING, NONTENDER, NO REBOUND, NO MASSES NO HEPATOMEGALY, NO SPLENOMEGALY, NO DE OLIVEIRA'S SIGN, NO HERNIAS. RECTAL: DEFERRED. GENITAL: DEFERRED. NEUROLOGICAL: NORMAL SPEECH, GROSS MOTOR FUNCTION INTACT, GROSS SENSORY FUNCTION INTACT. MUSCULOSKELETAL: NECK NONTENDER, FULL RANGE OF MOTION, BACK NONTENDER, FULL RANGE OF MOTION. EXTREMITIES: NONTENDER, FULL RANGE OF MOTION. SKIN: COLOR PINK, DRY, NO TURGOR, NO RASH, NO LACERATIONS, NO ABRASIONS, NO CONTUSIONS. LYMPHATICS: DEFERRED. Results Laboratory and Microbiology Lab and Micro Result Laboratory Tests Test 08/22/24 10:26 08/22/24 11:22 Urine Color YELLOW (YELLOW) Urine Appearance CLEAR (CLEAR) Urine pH 5.5 (5.0-8.0) Urine Specific [place] 1.025 (1.001-1.031) Urine Protein NEGATIVE mg/dL (NEGATIVE) Urine Glucose (UA) NEGATIVE mg/dL (NEGATIVE) Urine Ketones 5 mg/dL (NEGATIVE) H Urine Occult Blood SMALL (NEGATIVE) H Urine Nitrate NEGATIVE (NEGATIVE) Urine Bilirubin SMALL mg/dL (NEGATIVE) H Urine Urobilinogen 1.0 mg/dL (0.2-1.0) Urine Leukocyte Esterase MODERATE [place]/uL Urine RBC 6-10 /HPF (0-1) H Urine WBC 11-25 /HPF (0-1) H Urine Bacteria Few /HPF (None Seen) White Blood Count 12.7 K/uL (4.8-10.8) H Red Blood Count 4.54 MIL/uL (4.00-5.50) Hemoglobin 13.0 g/dL (12.0-16.0) Hematocrit 37.8 % (36-48) Mean Corpuscular Volume 83.3 fL (79-99) Mean Corpuscular Hemoglobin 28.6 pg (27.0-33.0) Mean Corpuscular Hemoglobin Concent 34.4 g/dL (32.0-36.0) Red Cell Distribution Width 14.0 % (11.0-15.5) Platelet Count 305 K/uL (130-400) Mean Platelet Volume 9.7 fL (7.5-10.5) Immature Granulocyte % (Auto) 0.8 % (0-1) Neutrophils (%) (Auto) 83.7 % (40.0-77.0) H Lymphocytes (%) (Auto) 10.0 % (21.0-51.0) L Monocytes (%) (Auto) 4.7 % (3.0-13.0) Eosinophils (%) (Auto) 0.3 % (0.0-8.0) Basophils (%) (Auto) 0.5 % (0.0-5.0) Neutrophils # (Auto) 10.7 K/uL (1.8-7.7) H Lymphocytes # (Auto) 1.3 K/uL (1.0-4.8) Monocytes # (Auto) 0.6 K/uL (0.1-1.0) Eosinophils # (Auto) 0.04 K/uL (0.00-0.70) Basophils # (Auto) 0.06 K/uL (0.00-0.20) Absolute Immature Granulocyte (auto 0.10 K/uL (0-1) Nucleated Red Blood Cells 0.0 % (0.0-0.19) White Cell Morphology Comment See comments Sodium Level 133 mmol/L (136-145) L Potassium Level 4.6 mmol/L (3.5-5.1) Chloride Level 102 mmol/L (101-111) Carbon Dioxide Level 20 mmol/L (21-32) L Blood Urea Nitrogen 94 mg/dL (7-18) *H Creatinine 3.7 mg/dL (0.5-1.0) H Glomerular Filtration Rate Calc 12 mL/min (>90) Random Glucose 85 mg/dL (70-105) Total Calcium 7.6 mg/dL (8.5-10.1) L Total Bilirubin 0.9 mg/dL (0.2-1.0) Aspartate Amino Transf (AST/SGOT) 23 U/L (10-37) Alanine Aminotransferase (ALT/SGPT) 30 U/L (12-78) Alkaline Phosphatase 163 U/L (50-136) H Total Creatine Kinase 135 U/L (21-232) Total Protein 5.8 g/dL (6.0-8.3) L Albumin 2.0 g/dL (3.5-5.0) L Lipase 8 U/L (16-77) L MDM MDM: Differential diagnosis: Dehydration, hypokalemia, WILMA,UTI Rationale: Tests considered and ordered secondary to shared decision making include: labs, ECG and radiology Previous outside records reviewed: Old ER visits. Risk of complication and/or morbidity or mortality of patient management: None Medications-Per medication reconciliation Need for hospitalization: Patient does meet criteria for hospitalization. Need for emergency major/minor surgery: No There are no social concerns with this patient. Prescription drug management Prescriptions will include symptomatic care Patient's prior external medical records from other ER visits were reviewed by me as indicated. Prior testing and results from previous visits were reviewed. Prior tests were taken into account with medical decision making and resource utilization, independent historian/historians were used to obtain complete medical history. I independently interpreted the test that were performed, results were reviewed by me and considered findings on radiology if ordered. Medical management and examination interpretation discussions were had by me with other qualified healthcare professionals as indicated for the patient's care. Patient is a 79-year-old female coming in to be evaluated for diarrhea. Patient states he has been having diarrhea for several weeks. Laboratory workup positive for elevated creatinine acute kidney injury is a diagnosis as well as dehydration. BE ADMITTED UNDER THE CARE OF [facility] FOR ONGOING MANAGEMENT. ED Course Orders Procedure Category Date Status Time Cbc With Differential LAB 08/22/24 Complete 10:05 Comprehensive LAB 08/22/24 Complete Metabolic Panel 10:05 Urinalysis Profile LAB 08/22/24 Complete 10:05 Lactated Ringers PHA 08/22/24 Complete 1000ml (Lactated 10:30 Ondansetron 4mg Inj PHA 08/22/24 Complete (Zofran 4mg Inj) 10:30 Pantoprazole 40mg Inj PHA 08/22/24 Complete (Protonix 40mg Inj 10:30 Creatine Kinase, Total LAB 08/22/24 Complete 10:05 Chest 1vw RAD 08/22/24 Resulted 10:05 Lipase LAB 08/22/24 Complete 10:05 Culture Urine CRISTOBAL 08/22/24 In Process 10:59 Ceftriaxone 1g Vial PHA 08/22/24 Transmitted (Rocephine 1g Inj) 14:30 Current Medications Medications (Trade) Dose Ordered Sig/Queenie Route PRN Reason Start Time Stop Time Status Last Admin Dose Admin Lactated Ringer's 1,000 ml @ 0 mls/hr ONCE ONCE IV 08/22/24 10:30 08/22/24 10:31 DC 08/22/24 13:59 Ondansetron HCl (zoFRAN 4MG INJ) 4 mg ONCE ONCE IVP 08/22/24 10:30 08/22/24 10:31 DC 08/22/24 13:58 Pantoprazole Sodium (PROTonix 40MG INJ) 40 mg ONCE ONCE IVP 08/22/24 10:30 08/22/24 10:31 DC 08/22/24 13:58 Vital Signs Date Time Temp Pulse Resp B/P (MAP) Pulse Ox O2 Delivery O2 Flow Rate FiO2 08/22/24 10:04 98.2 65 16 144/98 96 Room Air 0 Critical Care Note Comments CRITICAL CARE PROCEDURE NOTE AUTHORIZED AND PERFORMED BY: ME TOTAL CRITICAL CARE TIME: APPROXIMATELY 36 MINUTES DUE TO A HIGH PROBABILITY OF CLINICALLY SIGNIFICANT, LIFE THREATENING DETERIORATION, THE PATIENT REQUIRED MY HIGHEST LEVEL OF PREPAREDNESS TO INTERVENE EMERGENTLY AND I PERSONALLY SPENT THIS CRITICAL CARE TIME DIRECTLY AND PERSONALLY MANAGING THE PATIENT. THIS CRITICAL CARE TIME INCLUDED OBTAINING A HISTORY; EXAMINING THE PATIENT; PULSE OXIMETRY; ORDERING AND REVIEW OF STUDIES; ARRANGING URGENT TREATMENT WITH DEVELOPMENT OF A MANAGEMENT PLAN; EVALUATION OF PATIENT'S RESPONSE TO TREATMENT; FREQUENT REASSESSMENT; AND, DISCUSSIONS WITH OTHER PROVIDERS. THIS CRITICAL CARE TIME WAS PERFORMED TO ASSESS AND MANAGE THE HIGH PROBABILITY OF IMMINENT, LIFE-THREATENING DETERIORATION THAT COULD RESULT IN MULTI-ORGAN FAILURE. IT WAS EXCLUSIVE OF SEPARATELY BILLABLE PROCEDURES AND TREATING OTHER PATIENTS AND TEACHING TIME. PLEASE SEE MDM SECTION AND THE REST OF THE NOTE FOR FURTHER INFORMATION ON PATIENT ASSESSMENT AND TREATMENT. DX & DISP Disposition: Inpatient Decision to Admit Time: 14:14 Departure Impression: Primary Impression: WILMA (acute kidney injury) Additional Impressions: Dehydration, Diarrhea, UTI (urinary tract infection) Condition: Stable Referrals: BALTAZAR FOX DO (PCP) MANOLO LOPES MD Aug 22, 2024 10:39
--- NOTE | 2024-08-22 10:44 | HMCIMG ---
CHEST 1VW REASON: CP COMPARISON: 09/10/2023 FINDINGS: Single view of the chest was obtained. Lungs are clear. Heart size is normal. There is no pulmonary vascular congestion. Mediastinum and bony thorax appear unremarkable. Retrocardiac hiatal hernia is again noted IMPRESSION: . 1. Moderate cardiac hernia. 2. No acute finding. Signed report
[2024-08-22 10:51] LABS: APPEARANCE,URINE CLEAR (CLEAR); BILIRUBIN,URINE SMALL mg/dL (NEGATIVE); COLOR,URINE YELLOW (YELLOW); GLUCOSE, URINE (UA) NEGATIVE (NEGATIVE); KETONES,URINE 5 mg/dL (NEGATIVE); LEUKOCYTE ESTERASE ,URINE MODERATE Leu/uL (NEGATIVE); NITRATE,URINE NEGATIVE (NEGATIVE); OCCULT BLOOD,URINE SMALL (NEGATIVE); PH,URINE 5.5 (5.0-8.0); PROTEIN,URINE NEGATIVE (NEGATIVE)
[2024-08-22 10:59] LABS: ADD UA MICROSCOPIC YES
[2024-08-22 11:00] LABS: BACTERIA,URINE Few /HPF (None Seen)
[2024-08-22 11:37] LABS: BASOPHILS # (AUTO) 0.06 K/uL (0.00-0.20); BASOPHILS % (AUTO) 0.5 % (0.0-5.0); EOSINOPHILS # (AUTO) 0.04 K/uL (0.00-0.70); EOSINOPHILS % (AUTO) 0.3 % (0.0-8.0); HEMATOCRIT 37.8 % (36-48); LYMPHOCYTES # (AUTO) 1.3 K/uL (1.0-4.8); MEAN CORPUSCULAR HEMOGLOBIN 28.6 pg (27.0-33.0); MEAN CORPUSCULAR HGB CONC 34.4 g/dL (32.0-36.0); MEAN CORPUSCULAR VOLUME 83.3 fL (79-99); MONOCYTES # (AUTO) 0.6 K/uL (0.1-1.0); MONOCYTES % (AUTO) 4.7 % (3.0-13.0); NEUTROPHILS # (AUTO) 10.7 K/uL (1.8-7.7); NEUTROPHILS % (AUTO) 83.7 % (40.0-77.0); PLATELET COUNT (AUTO) 305 K/uL (130-400); RED BLOOD CELL COUNT(AUTO) 4.54 MIL/uL (4.00-5.50); WHITE BLOOD COUNT (AUTO) 12.7 K/uL (4.8-10.8)
[2024-08-22 11:47] LABS: BILIRUBIN,TOTAL 0.9 mg/dL (0.2-1.0); CREATININE 3.7 mg/dL (0.5-1.0); POTASSIUM 4.6 mmol/L (3.5-5.1); TOTAL PROTEIN, SERUM 5.8 g/dL (6.0-8.3)
[2024-08-22] MEDS: PANTOPrazole 40 MG/VIAL IVP ONE (13:58)
[2024-08-22] MEDS: ondanSETRON 4MG INJ IVP ONE (13:58)
[2024-08-22] MEDS: LACTATED RINGERS 1000ML 1,000 ML IV ONE (13:59)
--- NOTE | 2024-08-22 14:25 | HP ---
[facility] HISTORY & PHYSICAL Date Patient Seen: Aug 22, 2024 Time of Visit: 14:25 Supervising Physician: Ronnie Mclaughlin MD Primary Care Physician: Fany Slater Outpatient Specialists: [ ] Inpatient Consults: PROBLEM LIST: Septic shock combined with hypovolemic shock responsive to IV fluids, POA Acute cystitis, POA WILMA, POA Severe dehydration, POA Diarrhea, POA Moderate cardiac hernia on chest x-ray 08/22/24 Diffuse coronary artery calcification Severe hepatic steatosis Transaminitis, POA Moderate protein malnutrition HPI: Is an 79-year-old obese female with a past medical history pertinent for coronary artery disease status post stent placement in 2005, trace to mild mitral regurgitation, HFpEF with EF 70%, who presented to the ED for evaluation of loose stools x2 weeks. Patient reports taking Imodium that has not been able to help her. Patient reported that she started with vomiting and in the nausea stopped and continues with diarrhea. To the ED she presented with blood pressure 144/98 heart rate 65 respiratory rate of 16 saturating 96% on room air and afebrile she was given 1 L of NS and blood pressure of 86/45. 2 L of NS administered per RN. And blood pressure improved. WBCs were 12.7 with neutrophils of 83.2. Chemistries sodium 133 carbon dioxide of 20, anion gap of 11 BUN of 94 creatinine of 3.7. Total protein 5.8 albumin 2.0 and lipase of eight. Alkaline phosphatase 163 a urinalysis patient had ketones of five occult blood small bilirubin small leukocyte esterase moderate RBCs 6-10 and WBCs 11-25. Patient was given Rocephin 1 g IV in the ED and a total of 1 L. Patient continue IV fluid hydration with LR at 125 mL/hour and IV antibiotics with Zosyn. We will admit to medical-surgical with telemetry pack. PAST MEDICAL HX: CAD Percutaneous transluminal coronary angioplasty and stent in 2005 Hypotensive and cardiovascular disease Hypothyroidism Right bundle branch block Preserved ejection fraction Trace to mild mitral regurgitation with EF of 70% in 2019 Osteoarthritis PAST SURGICAL HX: Status post lap cholecystectomy in 2019 Heart stent in 2006 Right total knee replacement 2018 SOCIAL HISTORY: No tobacco, ETOH, or illicit drug use Coded Allergies: gabapentin (Unverified Allergy, Unknown, 09/21/18) REVIEW OF SYSTEMS: 12 point ROS reviewed with patient. Pertinent positives mentioned above. Otherwise negative. PHYSICAL EXAM: GENERAL: alert, weak, awake oriented x 3 HEENT: Sclera non icteric, dry mucosa NECK: Supple, no JVD, trachea midline LUNGS: Clear breath sounds bilaterally. No wheezes HEART: Regular rate and rhythm. Normal S1 and S2, without murmurs ABD: Abdomen soft, nontender. Bowel sounds present EXT: No clubbing cyanosis or edema NEURO: Alert and oriented to person, follows commands Vital Signs (last 8hr) Date Time Temp Pulse Resp B/P (MAP) Pulse Ox O2 Delivery O2 Flow Rate FiO2 08/22/24 10:04 98.2 65 16 144/98 96 Room Air 0 LABS: Hematology Labs: Test 08/22/24 11:22 Range/Units White Blood Count 12.7 H 4.8-10.8 K/uL Red Blood Count 4.54 4.00-5.50 MIL/uL Hemoglobin 13.0 12.0-16.0 g/dL Hematocrit 37.8 36-48 % Mean Corpuscular Volume 83.3 79-99 fL Mean Corpuscular Hemoglobin 28.6 27.0-33.0 pg Mean Corpuscular Hemoglobin Concent 34.4 32.0-36.0 g/dL Red Cell Distribution Width 14.0 11.0-15.5 % Platelet Count 305 130-400 K/uL Mean Platelet Volume 9.7 7.5-10.5 fL Immature Granulocyte % (Auto) 0.8 0-1 % Neutrophils (%) (Auto) 83.7 H 40.0-77.0 % Lymphocytes (%) (Auto) 10.0 L 21.0-51.0 % Monocytes (%) (Auto) 4.7 3.0-13.0 % Eosinophils (%) (Auto) 0.3 0.0-8.0 % Basophils (%) (Auto) 0.5 0.0-5.0 % Neutrophils # (Auto) 10.7 H 1.8-7.7 K/uL Lymphocytes # (Auto) 1.3 1.0-4.8 K/uL Monocytes # (Auto) 0.6 0.1-1.0 K/uL Eosinophils # (Auto) 0.04 0.00-0.70 K/uL Basophils # (Auto) 0.06 0.00-0.20 K/uL Absolute Immature Granulocyte (auto 0.10 0-1 K/uL Nucleated Red Blood Cells 0.0 0.0-0.19 % White Cell Morphology Comment See comments Chemistry Labs: Test 08/22/24 11:22 Range/Units Sodium Level 133 L 136-145 mmol/L Potassium Level 4.6 3.5-5.1 mmol/L Chloride Level 102 101-111 mmol/L Carbon Dioxide Level 20 L 21-32 mmol/L Blood Urea Nitrogen 94 *H 7-18 mg/dL Creatinine 3.7 H 0.5-1.0 mg/dL Glomerular Filtration Rate Calc 12 >90 mL/min Random Glucose 85 70-105 mg/dL Total Calcium 7.6 L 8.5-10.1 mg/dL Total Bilirubin 0.9 0.2-1.0 mg/dL Aspartate Amino Transf (AST/SGOT) 23 10-37 U/L Alanine Aminotransferase (ALT/SGPT) 30 12-78 U/L Alkaline Phosphatase 163 H 50-136 U/L Total Creatine Kinase 135 21-232 U/L Total Protein 5.8 L 6.0-8.3 g/dL Albumin 2.0 L 3.5-5.0 g/dL Lipase 8 L 16-77 U/L DIAGNOSTICS / RADIOLOGY RESULTS: IMAGING REPORT Signed PATIENT: KALA BAY MR#: [id number] : 1945 SEX: F AGE: 79 LOCATION: [facility] ORDER 1007 STATUS: [facility] REPORT#: [id number] SERVICE 1005 REASON: CP ORDERING PHYSICIAN: MANOLO LOPES MD PROCEDURE: CXR1VW - CHEST 1VW CHEST 1VW REASON: CP COMPARISON: 09/10/2023 FINDINGS: Single view of the chest was obtained. Lungs are clear. Heart size is normal. There is no pulmonary vascular congestion. Mediastinum and bony thorax appear unremarkable. Retrocardiac hiatal hernia is again noted IMPRESSION: . 1. Moderate cardiac hernia. 2. No acute finding. Signed report DICTATED BY: NADINE MANCILLA MD DATE: 08/22/24 1041 ELECTRONICALLY SIGNED BY: NADINE MANCILLA MD DATE: 08/22/24 104 PLAN admit to [facility] with tele CBC CMP Chest x-ray blood culture urine culture Flu and COVID lactic acid Broad-spectrum antibiotic Crystalloids 30 mL/kilogram and 1st 3 hours bolus Target map [address] abdomen and pelvis without contrast to rule out, complicated cystitis 2D echo to assess moderate Cardiac herniation that shows on chest x-ray CT of the chest to assess the above Cortisol level TSH NEURO: Minimize central acting medications as possible. Maintain fall precautions, adequate lighting during the day PULMONARY: Supplemental 02 as needed. Maintain aspiration precautions at all times CARDIOVASCULAR: Follow hemodynamics. Vital signs per facility protocol GI & NUTRITION: Continue with nutritional support. Continue stool softeners and laxatives as needed. KIDNEYS & ELECTROLYTES: Strict monitoring of intake, output and overall fluid balance. Avoid nephrotoxic medications to the extent possible. Medications to be dosed according to renal function. Monitor electrolytes and replace as needed ENDOCRINE: Maintain blood glucose between 100-180 at all times. Hypoglycemia protocol in place INFECTIOUS DISEASE: Trend temperature, WBC and procalcitonin level Follow cultures, deescalate antibiotics as soon as possible. Panculture if new onset fever ONCOLOGY/HEMATOLOGY/COAGULATION: Monitor for s/s of bleeding Monitor hemoglobin, coagulation studies as needed SKIN: Pressure ulcer prevention per facility protocol Specialty mattress ORTHO/REHAB: Continue PT/OT Prophylaxis: Continue GI and DVT prophylaxis Code Status: Full Resuscitation Disposition: TBD Other: Total patient care time exceeds 35 minutes excluding all procedures. DAGMAR DE LA ROSA Aug 22, 2024 14:25
[2024-08-22] MEDS: cefTRIAXone 1G VIAL IVPB ONE (14:26)
[2024-08-22] MEDS ORDERED: acetaMINOPHEN 650 MG SUPPOSITORY RC PRN (14:30)
[2024-08-22] MEDS ORDERED: acetaMINOPHEN 325 MG TAB PO PRN (14:30)
--- NOTE | 2024-08-22 15:24 | HMCIMG ---
FOOT COMP 3+VWS LT REASON: RULE OUT FX TECHNIQUE: 3 views were obtained. FINDINGS: There is no evidence of fracture or dislocation. There are surgical changes in the first to the metatarsophalangeal joint The soft tissues appear unremarkable. There is no evidence of a radiopaque foreign body. IMPRESSION: No acute findings.
--- NOTE | 2024-08-22 15:53 | HMCIMG ---
CT ABDOMEN/PELVIS W/O CONTRAST REASON: RULE OUT COMPLICATED CYSTITIS COMPARISON: None. FINDINGS: There is diffuse coronary artery calcification. Lung bases are clear. There is marked hepatic steatosis there are no focal hepatic lesions... There are normal-appearing kidneys.. Spleen and pancreas appear unremarkable. There has been a previous cholecystectomy. Bowel loops appear unremarkable. The appendix was not separately identified. There is no evidence of free fluid or intraperitoneal air. There are no focal fluid collections. Aorta and retroperitoneum appear normal as do pelvic soft tissue structures. This includes normal appearance of the urinary bladder. There is no evidence of wall thickening or mass. There is no stone or diverticulum. The anterior abdominal wall is intact. Osseous structures appear unremarkable. IMPRESSION: 1. No acute finding in the abdomen or pelvis with particular attention to the urinary bladder. 2. Diffuse coronary artery calcification. 3. Severe hepatic steatosis. CT was performed with one or more following dose reduction techniques: automated exposure control, adjustment of the mA and kv according to patient's size, or use of a iterative reconstruction technique.
[2024-08-22] MEDS: INSULIN humuLIN R 100 UNIT/ML 3ML SQ SCH (16:30)
[2024-08-22 17:37] LABS: COVID19 (SARS ANTIGEN RAPID) PRESUMPTIVE NEGATIVE (NEGATIVE); INFLUENZA TYPE A Negative For Type A (NEGATIVE); INFLUENZA TYPE B Negative For Type B (NEGATIVE)
[2024-08-22] MEDS: LACTATED RINGERS 1000ML 1,000 ML IV SCH (18:01)
[2024-08-22] MEDS: ZOSYN 3.375GM +NS 50ML IV SCH (18:05)
[2024-08-22] MEDS: BALSAM PERU/CASTOR OIL 60 GM TUBE TP SCH (21:46)
[2024-08-22] MEDS: miDODRine HCL 5 MG TABLET PO SCH (21:46)
[2024-08-22] MEDS: 0.9%NACL 1000ML 1,000 ML IV ONE (21:46)
[2024-08-22] MEDS: traMADol HCL 50 MG TABLET PO PRN (21:55)
--- NOTE | 2024-08-22 21:56 | NUR ---
PT BG LEVEL AT 67, 8 OZ OF APPLE JUICE AND A TURKEY SANDWICH PROVIDED AT THIS TIME./GILMAR
[2024-08-23 07:19] LABS: BASOPHILS # (AUTO) 0.03 K/uL (0.00-0.20); BASOPHILS % (AUTO) 0.4 % (0.0-5.0); EOSINOPHILS # (AUTO) 0.08 K/uL (0.00-0.70); EOSINOPHILS % (AUTO) 1.1 % (0.0-8.0); HEMATOCRIT 36.3 % (36-48); IMMATURE GRANULOCYTE ABSOLUTE 0.08 K/uL (0-1); LYMPHOCYTES # (AUTO) 1.9 K/uL (1.0-4.8); LYMPHOCYTES % (AUTO) 26.1 % (21.0-51.0); MEAN CORPUSCULAR HEMOGLOBIN 28.2 pg (27.0-33.0); MEAN CORPUSCULAR HGB CONC 33.3 g/dL (32.0-36.0); MEAN CORPUSCULAR VOLUME 84.6 fL (79-99); MONOCYTES # (AUTO) 0.7 K/uL (0.1-1.0); MONOCYTES % (AUTO) 9.7 % (3.0-13.0); NEUTROPHILS # (AUTO) 4.4 K/uL (1.8-7.7); NEUTROPHILS % (AUTO) 61.6 % (40.0-77.0); PLATELET COUNT (AUTO) 241 K/uL (130-400); RED BLOOD CELL COUNT(AUTO) 4.29 MIL/uL (4.00-5.50); RED CELL DISTRIBUTION WIDTH 13.8 % (11.0-15.5); WHITE BLOOD COUNT (AUTO) 7.1 K/uL (4.8-10.8)
[2024-08-23 08:17] LABS: CREATININE 2.5 mg/dL (0.5-1.0); MAGNESIUM 1.7 mg/dL (1.80-2.40); PHOSPHORUS 3.6 mg/dL (2.5-4.9); POTASSIUM 4.1 mmol/L (3.5-5.1); THYROID STIMULATING HORMONE 4.14 uIU/mL (0.36-3.74)
[2024-08-23] MEDS ORDERED: CEFTRIAXONE 2GM VIAL IVP SCH (09:00)
--- NOTE | 2024-08-23 09:31 | HMCIMG ---
CT CHEST W/O CONTRAST REASON: moderate cardiac hernia on chest xr COMPARISON: None. TECHNIQUE: Multiple sequential axial images of the chest were obtained from the thoracic inlet through the upper pole of the kidneys without intravenous contrast administration. FINDINGS: There is a 1.4 cm poorly defined mass present anteriorly in the left upper lobe. This has irregular margins. This could represent a focal neoplasm. Parenchymal scarring from previous inflammatory process is also possible. In retrospect this lesion was faintly visible on previous chest x-ray on 08/22/2024 and on 09/10/2023 and appears stable in the interval. PET/CT scan appears indicated, this lesion could be more safely followed in the absence of metabolic activity, or more aggressive the procedure PET scan is positive. Lungs are otherwise clear. There is normal-appearing pulmonary interstitial pattern. There is coronary artery calcification present diffusely. There is a moderate to large hiatal hernia. Hilar and mediastinal structures appear otherwise unremarkable there is marked hepatic steatosis. Upper abdominal structures appear otherwise unremarkable. IMPRESSION: 1. Irregular 1.4 cm mass present anteriorly in the left upper lobe, this could represent parenchymal scarring but early neoplasm is also possible. 2. PET/CT scan recommended, for evaluation of metabolic activity, this lesion could be more safely followed in the absence of metabolic activity. 3. Moderate to large hiatal hernia. 4. Marked hepatic steatosis. CT was performed with one or more following dose reduction techniques: automated exposure control, adjustment of the mA and kv according to patient's size, or use of a iterative reconstruction technique.
--- NOTE | 2024-08-23 10:08 | HMCIMG ---
US ARTERIAL UNILA LOW EXT DUPL REASON: DISCOLORATION TO L TOE COMPARISON: None TECHNIQUE: Left leg return Doppler evaluation was performed with spectral analysis and color flow imaging. FINDINGS: There are triphasic waveforms common femoral artery through the proximal popliteal artery. Distal popliteal artery is monophasic. Posterior tibial appears occluded. Anterior tibial and dorsalis pedis arteries are biphasic but with significantly decreased flow velocity. IMPRESSION: 1. 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
[2024-08-23] MEDS: PANTOPrazole 40 MG TAB DR PO SCH (10:20)
[2024-08-23] MEDS: HEParin 5,000 UNIT VIAL SQ SCH (10:20)
[2024-08-23] MEDS: NYSTatin 15 GM POWDER TP SCH (11:59)
[2024-08-23] MEDS ORDERED: FURO20TA4 PO (13:37)
[2024-08-23] MEDS ORDERED: DONE-53 PO (13:37)
[2024-08-23] MEDS ORDERED: OXYB5TAB20 PO (13:37)
[2024-08-23] MEDS ORDERED: DONE10TA43 PO (13:37)
--- NOTE | 2024-08-23 13:37 | NUR ---
[facility] Consult: Patient assessed by wound healing team. See wound assessment. Assessment and recommendations provided to primary nurse. Education provided. Addendum: 08/24/24 at 1616 by RICHARDSON VALLE RN RN/ Amended: Links added.
--- NOTE | 2024-08-23 13:48 | PN ---
[facility] PROGRESS NOTE Date Patient Seen: Aug 23, 2024 Time of Visit: 13:47 Supervising Physician: [ ] Primary Care Physician: Fany Slater Outpatient Specialists: [ ] Inpatient Consults: PROBLEM LIST: Septic shock combined with hypovolemic shock responsive to IV fluids, POA Acute cystitis, POA WILMA, POA Severe dehydration, POA Diarrhea, POA Moderate cardiac hernia on chest x-ray 08/22/24 Diffuse coronary artery calcification Severe hepatic steatosis Transaminitis, POA Moderate protein malnutrition INTERVAL HISTORY: [ ] REVIEW OF SYSTEMS: 12 point ROS reviewed with patient. Pertinent positives mentioned above. Otherwise negative. PHYSICAL EXAM: GENERAL: alert, weak, awake oriented x 3 HEENT: Sclera non icteric, dry mucosa NECK: Supple, no JVD, trachea midline LUNGS: Clear breath sounds bilaterally. No wheezes HEART: Regular rate and rhythm. Normal S1 and S2, without murmurs ABD: Abdomen soft, nontender. Bowel sounds present EXT: No clubbing cyanosis or edema NEURO: Alert and oriented to person, follows commands Vital Signs (last 8hr) Date Time Temp Pulse Resp B/P (MAP) Pulse Ox O2 Delivery O2 Flow Rate FiO2 08/23/24 11:29 98.2 72 12 120/65 98 Room Air* 0 21 08/23/24 09:06 98.2 73 15 117/70 96 Room Air* 0 21 08/23/24 06:05 67 16 99/57 97 Room Air* 0 21 LABS: Hematology Labs: Test 08/23/24 06:50 08/22/24 11:22 Range/Units White Blood Count 7.1 # 4.8-10.8 K/uL Red Blood Count 4.29 4.00-5.50 MIL/uL Hemoglobin 12.1 12.0-16.0 g/dL Hematocrit 36.3 36-48 % Mean Corpuscular Volume 84.6 79-99 fL Mean Corpuscular Hemoglobin 28.2 27.0-33.0 pg Mean Corpuscular Hemoglobin Concent 33.3 32.0-36.0 g/dL Red Cell Distribution Width 13.8 11.0-15.5 % Platelet Count 241 130-400 K/uL Mean Platelet Volume 9.8 7.5-10.5 fL Immature Granulocyte % (Auto) 1.1 H 0-1 % Neutrophils (%) (Auto) 61.6 40.0-77.0 % Lymphocytes (%) (Auto) 26.1 21.0-51.0 % Monocytes (%) (Auto) 9.7 3.0-13.0 % Eosinophils (%) (Auto) 1.1 0.0-8.0 % Basophils (%) (Auto) 0.4 0.0-5.0 % Neutrophils # (Auto) 4.4 1.8-7.7 K/uL Lymphocytes # (Auto) 1.9 1.0-4.8 K/uL Monocytes # (Auto) 0.7 0.1-1.0 K/uL Eosinophils # (Auto) 0.08 0.00-0.70 K/uL Basophils # (Auto) 0.03 0.00-0.20 K/uL Absolute Immature Granulocyte (auto 0.08 0-1 K/uL Nucleated Red Blood Cells 0.0 0.0-0.19 % White Cell Morphology Comment See comments Chemistry Labs: Test 08/23/24 11:50 08/23/24 06:50 08/22/24 18:49 08/22/24 11:22 Range/Units Whole Blood Glucose 95 70-110 MG/DL Sodium Level 137 136-145 mmol/L Potassium Level 4.1 3.5-5.1 mmol/L Chloride Level 108 101-111 mmol/L Carbon Dioxide Level 17 L 21-32 mmol/L Blood Urea Nitrogen 66 #H 7-18 mg/dL Creatinine 2.5 H 0.5-1.0 mg/dL Glomerular Filtration Rate Calc 19 >90 mL/min Random Glucose 70 70-105 mg/dL Total Calcium 7.3 L 8.5-10.1 mg/dL Phosphorus Level 3.6 2.5-4.9 mg/dL Magnesium Level 1.70 L 1.80-2.40 mg/dL Thyroid Stimulating Hormone (TSH) 4.14 H 0.36-3.74 uIU/mL Lactic Acid Level 2.4 0.8-2.5 mmol/L Total Bilirubin 0.9 0.2-1.0 mg/dL Aspartate Amino Transf (AST/SGOT) 23 10-37 U/L Alanine Aminotransferase (ALT/SGPT) 30 12-78 U/L Alkaline Phosphatase 163 H 50-136 U/L Total Creatine Kinase 135 21-232 U/L Total Protein 5.8 L 6.0-8.3 g/dL Albumin 2.0 L 3.5-5.0 g/dL Lipase 8 L 16-77 U/L DIAGNOSTICS / RADIOLOGY RESULTS: [ ] PLAN admit to [facility] with tele CBC CMP Chest x-ray blood culture urine culture Flu and COVID lactic acid Broad-spectrum antibiotic Crystalloids 30 mL/kilogram and 1st 3 hours bolus Target map [address] abdomen and pelvis without contrast to rule out, complicated cystitis 2D echo to assess moderate Cardiac herniation that shows on chest x-ray CT of the chest to assess the above Cortisol level TSH NEURO: Minimize central acting medications as possible. Maintain fall precautions, adequate lighting during the day PULMONARY: Supplemental 02 as needed. Maintain aspiration precautions at all times CARDIOVASCULAR: Follow hemodynamics. Vital signs per facility protocol GI & NUTRITION: Continue with nutritional support. Continue stool softeners and laxatives as needed. KIDNEYS & ELECTROLYTES: Strict monitoring of intake, output and overall fluid balance. Avoid nephrotoxic medications to the extent possible. Medications to be dosed according to renal function. Monitor electrolytes and replace as needed ENDOCRINE: Maintain blood glucose between 100-180 at all times. Hypoglycemia protocol in place INFECTIOUS DISEASE: Trend temperature, WBC and procalcitonin level Follow cultures, deescalate antibiotics as soon as possible. Panculture if new onset fever ONCOLOGY/HEMATOLOGY/COAGULATION: Monitor for s/s of bleeding Monitor hemoglobin, coagulation studies as needed SKIN: Pressure ulcer prevention per facility protocol Specialty mattress ORTHO/REHAB: Continue PT/OT Prophylaxis: Continue GI and DVT prophylaxis Code Status: Full Resuscitation Disposition: TBD Other: Total patient care time exceeds 35 minutes excluding all procedures. ALBANIA VILLANUEVA Aug 23, 2024 13:48
--- NOTE | 2024-08-23 14:54 | DS ---
[facility] DISCHARGE SUMMARY Date Patient Seen: Aug 23, 2024 Time of Visit: 14:48 Supervising Physician: Dr. Ronnie Mclaughlin Primary Care Physician: Fany Slater Outpatient Specialists: [ ] Inpatient Consults: HOSPITAL COURSE: HPI (per admitting provider) s an 79-year-old obese female with a past medical history pertinent for coronary artery disease status post stent placement in 2005, trace to mild mitral regurgitation, HFpEF with EF 70%, who presented to the ED for evaluation of loose stools x2 weeks. Patient reports taking Imodium that has not been able to help her. Patient reported that she started with vomiting and in the nausea stopped and continues with diarrhea. To the ED she presented with blood pressure 144/98 heart rate 65 respiratory rate of 16 saturating 96% on room air and afebrile she was given 1 L of NS and blood pressure of 86/45. 2 L of NS administered per RN. And blood pressure improved. WBCs were 12.7 with neutrophils of 83.2. Chemistries sodium 133 carbon dioxide of 20, anion gap of 11 BUN of 94 creatinine of 3.7. Total protein 5.8 albumin 2.0 and lipase of eight. Alkaline phosphatase 163 a urinalysis patient had ketones of five occult blood small bilirubin small leukocyte esterase moderate RBCs 6-10 and WBCs 11-25. Patient was given Rocephin 1 g IV in the ED and a total of 1 L. Patient continue IV fluid hydration with LR at 125 mL/hour and IV antibiotics with Zosyn. We will admit to medical-surgical with telemetry pack. The patient was treated for the following problems: Patient was evaluated in the ED for hypovolemic shock which responded well to IV fluid resuscitation. Patient was also found to have acute cystitis for which she was started on IV antibiotic treatment. Patient has recovered appropriately, and after a visit for wound care who determined that the sores on her heels were able to be managed as outpatient patient will be discharged today with oral antibiotic therapy to complete at home. Patient has been advised of the signs and symptoms to watch for to returned to the ED, she has confirmed her awareness in agreement. Patient is to follow up with her PCP in one week, discharging with her son for assistance. 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 PCP notified of patients admission, hospital course and discharge. PHYSICAL EXAM: GENERAL: alert, weak, awake oriented x 3 HEENT: Sclera non icteric, dry mucosa NECK: Supple, no JVD, trachea midline LUNGS: Clear breath sounds bilaterally. No wheezes HEART: Regular rate and rhythm. Normal S1 and S2, without murmurs ABD: Abdomen soft, nontender. Bowel sounds present EXT: No clubbing cyanosis or edema NEURO: Alert and oriented to person, follows commands FOLLOW-UP: Follow-up with PCP in 2-3 days RECOMMENDATIONS: See Discharge Instructions This case was seen and discussed with my supervising physician. More than 30 minutes spent on discharge process, including evaluation of the patient, discussion with nursing staff, medication reconciliation and follow-up appointments ALBANIA VILLANUEVA Aug 23, 2024 14:54
[2024-08-23] MEDS ORDERED: MACR100 PO (14:58)
--- NOTE | 2024-08-23 16:09 | HMCSR ---
APPROVED REPORT EXAM: Two-dimensional and M-mode echocardiogram with Doppler and color Doppler. INDICATION ICD: hypoxic resp failure 2D Dimensions RVDd3.1 cmLVEF(%)57.7 (>50%)LVED Vol(simp.)95.0 mL IVSd1.1 (0.7-1.1cm)FS(%)30 %LVES Vol(simp.)35.8 mL LVDd3.7 (3.8-5.6cm)LA (2D)3.3 (1.6-4.0cm)LVEF(%, simp.)62 % PWd1.2 (0.7-1.1cm)Ao Root(2D)3.0 (2.0-3.7cm)LA ESV INDEX (4CH)17.40 mL/m2 IVSs1.3 cmLVOT diam2.2 (1.8-2.4cm)LA ESV INDEX (2CH)31.40 mL/m2 LVDs2.6 (2.5-4.0cm) PWs1.6 cm M-Mode Dimensions EPSS0.8 cm LA (MM)3.4 (1.6-4.0cm) Ao Root(MM)3.0 (2.0-3.7cm) Aortic Valve AoV VTI0.3 mAo Mean GR6.0 mmHgLVOT VTI0.20 m PAXTON (VMAX)2.3 cm2AVA (VTI) 2.3 cm2 Mitral Valve MV E Vmax70.3 cm/sDECEL Cndq759 ms MV A Kcai070.7 cm/sP 1/2 T87 ms E/A ratio0.6MVA (PHT)2.5 cm2 MR Max PG42 mmHg TDI E/E' Qjpuxe22.6E/E' Tsysafg29.2 Medial E' Peak V4.50 cm/sLateral E' Peak V6.90 cm/s Tricuspid Valve TR Vmax3.0 m/s TR Peak GR35.4 mmHg Left Ventricle Left ventricular cavity size is normal. There is normal LV segmental wall motion. There is normal lef t ventricular wall thickness. LVEF is 60-65%. Stage I diastolic dysfunction. Right Ventricle The right ventricle is normal size. The right ventricular systolic function is normal. Atria The left atrium size is normal. The right atrium size is normal. Aortic Valve The aortic valve is normal in structure and function. No aortic regurgitation is present. There is no aortic valvular stenosis. Mitral Valve The mitral valve is mildly thickened. Mitral valve leaflets open well. Mitral regurgitation is mild. There is no mitral valve stenosis. Tricuspid Valve The tricuspid valve is normal in structure and function. There is mild tricuspid valve regurgitation noted. Pulmonic Valve The pulmonary valve is normal in structure and function. There is no pulmonic valvular regurgitation. Great Vessels The aortic root is normal in size. Due to poor image quality, the IVC could not be assessed. Pericardium No pericardial effusion. Conclusion There is normal LV segmental wall motion. LVEF is 60-65%. There is normal LV segmental wall motion. The mitral valve is mildly thickened. Mitral valve leaflets open well. There is mild tricuspid valve regurgitation noted.
[2024-08-23 16:16] VITALS: BP 110/75; PULSE 78; RESP 16; TEMP 97.3; O2SAT 98
--- NOTE | 2024-08-23 16:59 | NUR ---
PT GIVEN INSTRUCTION FOR HOME, ONE RX EMAILED TO PT PHARMACY WILL START TODAY. PT STABLE AAOX4 NO DISTRESS, NO C/O PAIN. PT AND SON BOTH VERBALIZED UNDERSTANDING, IV AND MIDLINE REMOVED BOTH CATETHERS INTACT NO HEMATOMA OR BLEEDING NOTED TO SITES. PT GOWN CHANGED, PT PLACED IN W/C TAKEN TO LOBBY DRIVEN HOME BY SON.
== END 2024-08-23 16:37 | disposition home or self-care (01) | DRG 871 ==
LOC: EDH 10:03 → EDHIP 14:19
PROVIDERS: ADMIT Internal Medicine; ATTEND Internal Medicine
DX: A41.9 Sepsis, unspecified organism (principal); R57.1 Hypovolemic shock; R65.21 Severe sepsis with septic shock; E44.0 Moderate protein-calorie malnutrition; N17.9 Acute kidney failure, unspecified; N30.00 Acute cystitis without hematuria; E03.9 Hypothyroidism, unspecified; E11.9 Type 2 diabetes mellitus without complications; E66.9 Obesity, unspecified; E86.0 Dehydration; I10 Essential (primary) hypertension; Z96.653 Presence of artificial knee joint, bilateral; K76.0 Fatty (change of) liver, not elsewhere classified; F32.A Depression, unspecified; F41.9 Anxiety disorder, unspecified; I25.10 Atherosclerotic heart disease of native coronary artery without angina pectoris; Z90.49 Acquired absence of other specified parts of digestive tract; Z95.5 Presence of coronary angioplasty implant and graft; Z68.30 Body mass index [BMI] 30.0-30.9, adult
CPT/HCPCS: 36415; 71045; 71250; 73630; 74176; 80048; 80053; 81001; 82550; 82948; 83605; 83690; 83735; 84100; 84443; 85025; 87040; 87086; 87186; 87426; 87804; 93306; 93926; G0378; J0696; J1644; J2405; J2470; J2543; J7120

== ENCOUNTER → 2024-09-12 | Outpatient (CLI) | payer OTHER ==
[~2024-09-12] MED LIST changes: -ASPI-1012 PO; -CALC-1106 PO; +DONE-53 PO; +DONE10TA43 PO; +FURO20TA4 PO; -HYDR-4457 PO; -LISI2.5T13 PO; +MACR100 PO; -METF-444 PO; -MULT-660 PO; +OXYB5TAB20 PO; -VITA1CAP85 PO
== END | disposition home or self-care (01) ==
LOC: SHCH 12:57
PROVIDERS: ATTEND Internal Medicine Cardiovascular Disease
DX: I87.2 Venous insufficiency (chronic) (peripheral) (principal); I73.9 Peripheral vascular disease, unspecified
CPT/HCPCS: 93925; 93970

== ENCOUNTER → 2025-01-19 | Outpatient (CLI) | payer OTHER ==
[~2025-01-19] MED LIST changes: +IOHEXOL-350 75 ML VIAL IV ONE
--- NOTE | 2025-01-19 15:58 | HMCIMG ---
EXAM: CTA Chest with and without Intravenous Contrast for PE evaluation CLINICAL HISTORY: Acute embolism and thrombosis of tibial vein, bilateral, PE TECHNIQUE: Axial CTA images of the chest with and without intravenous contrast using a pulmonary embolism protocol. Multiplanar reconstructed images were created and reviewed. CONTRAST: None. was administered without incident. COMPARISON: None provided. FINDINGS: PULMONARY ARTERIES: No evidence of central or segmental pulmonary embolism is seen. AORTA: There is no evidence for aneurysm or dissection of the thoracic aorta. Ill-defined area of abnormal airspace opacity/ill-defined pulmonary nodule left upper lung measuring 1.8 x 1.0 cm. Elevation of the right hemidiaphragm. Very large sliding hiatal hernia with the majority of the stomach located within the chest cavity. PLEURAL SPACES: No pleural effusion seen. No pneumothorax evident. HEART: Heart size is within normal limits. No significant pericardial effusion. LYMPH NODES: No lymphadenopathy is evident. BONES: No focal osseous abnormality or acute fracture. Marked chronic compression deformity T9 vertebral body with retropulsed fracture fragment resulting in mild central canal narrowing. UPPER ABDOMEN: Images of the upper abdomen are unremarkable. IMPRESSION: 1. No evidence of pulmonary embolism. 2. 1.8 x 1.0 cm ill-defined opacity/nodule in left upper lung versus pulmonary scaring. Recommend a short interval follow-up CT chest exam with IV contrast in 3 months.. 3. Very large sliding hiatal hernia with intrathoracic stomach. 4. T9 compression deformity with retropulsed fragment causing mild central canal narrowing. 5. Right hemidiaphragm elevation. /[place]
== END | disposition home or self-care (01) ==
LOC: RAH 11:57
PROVIDERS: ATTEND Internal Medicine Cardiovascular Disease
DX: R91.1 Solitary pulmonary nodule (principal); I82.443 Acute embolism and thrombosis of tibial vein, bilateral; J98.4 Other disorders of lung; K44.9 Diaphragmatic hernia without obstruction or gangrene; M48.54XA Collapsed vertebra, not elsewhere classified, thoracic region, initial encounter for fracture; M48.04 Spinal stenosis, thoracic region
CPT/HCPCS: 71270; Q9967